=== PATIENT | female | born 1960 | race Caucasian/White ===

== ENCOUNTER → 2020-02-23 | Outpatient (CLI) | payer OTHER ==
[2020-02-23 09:46] LABS: Basophils # (auto) 0.1 10 ^3/uL (0-0.2); Basophils % (auto) 1.2 % (0.0-2.0); Eosinophils # (auto) 0.4 10 ^3/uL (0-0.8); Eosinophils % (auto) 3.8 % (0.0-7.0); Hemoglobin 15.8 g/dL (12.2-16.2); Lymphocytes # (auto) 2.1 10 ^3/uL (0.4-5.4); Lymphocytes % (auto) 22.5 % (10.0-50.0); Mean Corpuscular Hemoglobin 30.6 pg (28.0-32.0); Mean Corpuscular Hgb Conc. 33.5 g/dL (32.0-36.0); Mean Corpuscular Volume 91.4 fL (80.0-100.0); Monocytes # (auto) 0.5 10 ^3/uL (0-1.3); Monocytes % (auto) 5.3 % (0.0-12.0); Neutrophils # (auto) 6.3 10 ^3/uL (1.6-8.6); Neutrophils % (auto) 67.2 % (37.0-80.0); Nucleated Red Blood Cells % 0.1 %; Platelet Count (auto) 342 10^3/uL (140-450); Red Blood Cells 5.15 10^6/uL (4.0-5.20); White Blood Cell 9.3 10^3/uL (4.4-10.8)
[2020-02-23 10:04] LABS: Urine Bacteria NONE SEEN /hpf (None Seen); Urine Blood Negative /uL (Negative); Urine Specific Gravity 1.003 (1.001-1.035); Urine WBC 1 /hpf (0 - 5)
[2020-02-23 10:20] LABS: Albumin 3.7 g/dL (3.4-5.0); Calcium 9.1 mg/dL (8.5-10.1); Potassium 3.8 mmol/L (3.5-5.1)
[2020-02-23 10:24] LABS: BUN/Creatinine Ratio 17.3; Bilirubin, Total 0.9 mg/dL (0.2-1.0); CRP High Sensitivity 0.85 mg/dL (< 0.3); Total Protein 7.5 g/dL (6.4-8.2)
[2020-02-23 10:28] LABS: Free T4 (Free Thyroxine) 0.93 ng/dL (0.89-1.76)
[2020-02-23 10:29] LABS: Free T3 2.97 pg/mL (2.3-4.2)
== END | disposition home or self-care (01) ==
LOC: LAB 09:13
DX: R74.0 Nonspecific elevation of levels of transaminase and lactic acid dehydrogenase [LDH] (principal); R23.9 Unspecified skin changes; I10 Essential (primary) hypertension; G93.3 Postviral and related fatigue syndromes; D51.3 Other dietary vitamin B12 deficiency anemia; E78.2 Mixed hyperlipidemia; K21.9 Gastro-esophageal reflux disease without esophagitis; E03.9 Hypothyroidism, unspecified
CPT/HCPCS: 36415; 80053; 80061; 81001; 82043; 82306; 82607; 82977; 83036; 84439; 84443; 84481; 85025; 85652; 86141

== ENCOUNTER 2025-06-10 08:23 | Outpatient (CLI) | payer OTHER ==
[~2025-06-10] VITALS: Ht 160 cm; Wt 70.3 kg
[2025-06-10] MEDS: REGADENOSON 0.4 MG/5 ML SYRG IV ONE ×2 (10:58→10:59)
--- NOTE | 2025-06-10 16:01 | DVHSR ---
APPROVED REPORT Exam: Nuclear Stress Test BMI: 0 Stress Test Details HR Max Heart Rate (APMHR): 154.977053 bpm Target HR (85% APMHR): 130.515281 bpm BP ECG Stress ECG Conclusion poor quality study lvef >80% small LV cavity, no perfusion defect noted NM EXAM: Myocardial Perfusion REST/STRESS Imaging Protocol: Rest Tc-99m/Stress Tc-99m 1 day Resting Data Rest SPECT myocardial perfusion imaging was performed in supine position 60 minutes following the int ravenous injection of 10.9 mCi of Tc-99m Sestamibi. Time of rest injection: 09:25 Date: 06/10/2025 Time of rest imagin:25 Date: 06/10/2025 Administration Route: IV Administration Site: Right Arm Pharmacologic Stress Pharmacologic stress test was performed by injecting Regadenoson 0.4 mg IV push followed by the intra venous injection of 32.9 mCi of Tc-99m Sestamibi. Time of stress injection: 11:01 Date: 06/10/2025 Time of stress imagin:01 Date: 06/10/2025 Administration Route: IV Administration Site: Right Arm Gated Stress SPECT was performed 60 minutes after stress injection. The images were gated to evaluate regional wall motion and calculate left ventricular ejection fracti on. Stress only was performed in the Supine position. Nuclear Conclusion Nuclear Findings: negative for ischemia poor quality study lvef >80% small LV cavity, no perfusion defect noted
== END 2025-06-10 17:00 | disposition home or self-care (01) ==
LOC: XYW 08:23
PROVIDERS: ATTEND Specialist
DX: I10 Essential (primary) hypertension (principal); E11.9 Type 2 diabetes mellitus without complications; E66.9 Obesity, unspecified
CPT/HCPCS: 78452; 93017; A9500; J2785